=== PATIENT | female | born 1960 | race Caucasian/White ===

== ENCOUNTER 2016-11-26 17:46 | Emergency (ER) | payer OTHER ==
[~2016-11-26] VITALS: Ht 157.5 cm; Wt 86.2 kg
[2016-11-26 17:48] VITALS: BP 144/88
[2016-11-26] MEDS ORDERED: MYRBETRIQ25 M1 PO (18:06)
[2016-11-26] MEDS ORDERED: CARBIDOPA-LEVO1 EAC7 PO (18:06)
[2016-11-26] MEDS ORDERED: MAGNESIUM400 M1 PO (18:07)
[2016-11-26] MEDS ORDERED: OMEPRAZOLE20 M3 PO (18:07)
[2016-11-26] MEDS ORDERED: PAROXETINE HCL20 M1 PO (18:07)
[2016-11-26] MEDS ORDERED: LEVOTHYROXINE50 MCG PO (18:07)
[2016-11-26] MEDS ORDERED: ASPIRIN EC81 M1 PO (18:07)
--- NOTE | 2016-11-26 18:37 | RADIOLOGY REPORT ---
EXAMINATION: XR SHOULDER, LEFT XR ELBOW, LEFT XR WRIST, LEFT CLINICAL INFORMATION: Trauma. Fall. Pain. COMPARISON: None TECHNIQUE: 3 views of the left shoulder. 4 views of the left elbow. 4 views of the left wrist. FINDINGS: Left shoulder: No fracture or dislocation. The humeral head articulates appropriately with the glenoid. Tiny inferior osteophyte noted at the glenoid. The acromioclavicular joint is intact with mild degenerative change. The visualized lung is clear. Left elbow: There is no fracture or dislocation. Alignment is anatomic. Joint spaces are maintained. No joint effusion. Left wrist: No fracture or dislocation. The carpal rows are appropriately aligned. Joint spaces are maintained. The soft tissues are unremarkable. IMPRESSION: No acute fracture or malalignment involving the left shoulder, elbow, or wrist.
--- NOTE | 2016-11-26 18:51 | ED UPPER/LOWER EXTREMITY COMPL ---
History of Present Illness General Chief Complaint: Upper Extremity Injury Stated Complaint: LEFT ARM PAIN, S/P FALL Source: patient Exam Limitations: no limitations Vital Signs & Intake/Output Vital Signs & Intake/Output Vital Signs Date Time Temp Pulse Resp B/P B/P Pulse O2 O2 Flow FiO2 Mean Ox Delivery Rate 11/26 1910 99 Room Air 11/26 1748 98.2 93 18 144/88 100 Room Air Allergies Coded Allergies: Penicillins (Severe, RASH 11/26/16) psyllium (From METAMUCIL) (Severe, ANAPHYLAXIS 11/26/16) Reconcile Medications Aspirin (Ecotrin*) 81 MG TABLET.DR 1 TAB PO DAILY HEART/BLOOD (Reported) Carbidopa/Levodopa (Carbidopa-Levodopa 25-100 Tab) 25 MG-100 MG TABLET 1 TAB PO BID RLS (Reported) Hydrocodone/Acetaminophen (Hydrocodon-Acetaminophen 5-325) 5 MG-325 MG TABLET 1-2 TAB PO Q4-6 PRN PRN pain Levothyroxine Sodium 50 MCG TABLET 1 TAB PO DAILY THYROID (Reported) Magnesium Oxide (Magnesium) (Unknown Strength) CAPSULE (Unknown Dose) PO DAILY PRN SUPPLEMENT (Reported) Mirabegron (Myrbetriq) 25 MG TAB.ER.24H 1 TAB PO DAILY BLADDER (Reported) Omeprazole 20 MG TABLET.DR 1 TAB PO DAILY GI (Reported) Paroxetine HCl 20 MG TABLET 1 TAB PO DAILY PANIC ATTACKS (Reported) Triage Note: 56 Y/O FEMALE C/O L ARM PAIN S/P TRIP AND FALL 1 HOUR AGO WHILE PUMPING GAS. STATES SHE LANDED OUT OUTSTRETCHED ARM. C/O PAIN IN L ELBOW, L WRIST AND L HAND. NO DEFORMITIES NOTED. SLING PROVIDED. PT DECLINES OFFER OF MEDS IN TRIAGE. Triage Nurses Notes Reviewed? yes Onset: Abrupt Duration: hour(s):, constant, continues in ED Timing: recent history Severity: moderate, severe Pain/Injury Location: Left: Arm, Shoulder, Elbow, Wrist. Method of Injury: fall No Modifying Factors: none HPI: 48-year-old female comes into emergency room with complaints of left shoulder left elbow and left wrist pain after slipping and falling at home. Patient reports that she tripped over a gas pump outside and came down her left side. Denies hitting her head. Denies any neck pain. Denies any other extremity injuries. She reports that she has a small abrasion to her knee but does not feel like she broke anything. Denies any other associated symptoms. (MIC SUNG) Past History Travel History Traveled to [place] past 21 day No Medical History Any Pertinent Medical History? see below for history Neurological: NONE EENT: NONE Cardiovascular: NONE Respiratory: NONE Gastrointestinal: NONE Hepatic: NONE Renal: NONE Musculoskeletal: NONE Psychiatric: NONE Endocrine: NONE Blood Disorders: NONE Cancer(s): NONE ASSOCIATE BROKER/Reproductive: NONE Surgical History Surgical History: non-contributory Psychosocial History Who do you live with Spouse Services at Home None What is your primary language Marshallese Tobacco Use: Current Not Daily Family History Hx Contributory? No (MIC SUNG) Review of Systems Review of Systems Constitutional: Reports: no symptoms. EENTM: Reports: no symptoms. Respiratory: Reports: no symptoms. Cardiovascular: Reports: no symptoms. Gastrointestinal/Abdominal: Reports: no symptoms. Genitourinary: Reports: no symptoms. Musculoskeletal: Reports: see HPI. Skin: Reports: no symptoms. Neurological/Psychological: Reports: no symptoms. Hematologic/Endocrine: Reports: no symptoms. Immunological: Reports: no symptoms. All Other Systems: Reviewed and Negative (MIC SUNG) Physical Exam Physical Exam General Appearance: well developed/nourished, mild distress Head: atraumatic Eyes: Bilateral: normal appearance. Ears, Nose, Throat: normal ENT inspection, hearing grossly normal Neck: normal inspection Cardiovascular/Respiratory: no respiratory distress Back: normal inspection Shoulder Left: soft tissue tenderness, limited range of motion Elbow Left: bone tenderness, soft tissue tenderness, limited range of motion Hand Left: limited range of motion Neurologic/Tendon: normal sensation, normal motor functions, normal tendon functions, responds to pain, no evidence tendon injury, no pulse deficit Skin: intact, normal color, warm/dry Lymphatic: no anterior cervical azucena (MIC SUNG) Progress Differential Diagnosis: arterial insufficiency, cellulitis, CHF, compartment syndrome, contusion, dislocation, DVT, fracture, gout, septic arthritis, sprain, tendon injury Plan of Care: Orders Procedure Date/time Status Durable Medical Equipment 11/26 1041 Active Diagnostic Imaging: Viewed by Me: Radiology Read. Discussed w/RAD: Radiology Read. Radiology Impression: XAM TYPE: RAD - XRY-ELBOW 3 OR MORE VIEWS, L; XRY-SHOULDER COMPLETE-LEFT; XRY-WRIST COMPLETE-LEFT EXAMINATION: XR SHOULDER, LEFT XR ELBOW, LEFT XR WRIST, LEFT CLINICAL INFORMATION: Trauma. Fall. Pain. COMPARISON: None TECHNIQUE: 3 views of the left shoulder. 4 views of the left elbow. 4 views of the left wrist. FINDINGS: Left shoulder: No fracture or dislocation. The humeral head articulates appropriately with the glenoid. Tiny inferior osteophyte noted at the glenoid. The acromioclavicular joint is intact with mild degenerative change. The visualized lung is clear. Left elbow: There is no fracture or dislocation. Alignment is anatomic. Joint spaces are maintained. No joint effusion. Left wrist: No fracture or dislocation. The carpal rows are appropriately aligned. Joint spaces are maintained. The soft tissues are unremarkable. IMPRESSION: No acute fracture or malalignment involving the left shoulder, elbow, or wrist. DICTATED BY: KODI FROST,BRIGITTE DATE/TIME DICTATED :11/26/161830 REO ASSET MANAGER:DARRIUS DATE/TIME TRANSCRIBED:11/26/161830 CONFIDENTIAL, DO NOT COPY WITHOUT APPROPRIATE AUTHORIZATION. (JULIÁN ADAIR,MIC) Departure Departure Disposition: HOME OR SELF CARE Condition: Stable Clinical Impression Primary Impression: Sprain of left elbow Referrals: RICCARDO FROST,JEWEL MEDRANO DO (PCP/Family) Additional Instructions: Take Vicodin as needed for pain. Follow-up with primary care doctor. Ice. Rest. Ibuprofen. Follow-up with orthopedic doctor if not better in 7-10 days. Please go over all results of today's visit with your primary care doctor. Contact your primary care doctor to let them know you were here in the emergency room. There may be nonspecific findings which may not be related to your visit today here in the emergency room but may require further evaluation and chronic monitoring by your primary care doctor. If you had a laceration today the chance of foreign body always remains. You should follow-up with your primary care doctor for recheck in 3-5 days for a wound check. If you had an x-ray done there is a chance that a fracture could have been missed on initial read and you should follow-up with your primary care doctor for repeat x-rays if symptoms persist. If your blood pressure was elevated here in the emergency room please have rechecked by her primary care doctor within the next 48 hours by your primary care doctor. If you were prescribed a narcotic here in the emergency room or any type of controlled substances you're not allowed to drive while taking this medication or operate any type of heavy machinery. Narcotics can make you feel lightheaded dizziness nausea and can cause constipation. You may need to bean picker a stool softener. Thank you for choosing [facility] emergency room. Please return to the emergency room immediately if you have any other concerns worsening of symptoms. Departure Forms: Customer Survey General Discharge Information Prescriptions: Current Visit Scripts Hydrocodone/Acetaminophen (Hydrocodon-Acetaminophen 5-325) 1-2 TAB PO Q4-6 PRN PRN pain #10 TAB Comments 11/26/2016 8:14:56 PM Patient clinically looks well. Patient is nontoxic-appearing. Patient is in no apparent distress. Patient resting comfortably in room. No evidence of fracture. Follow-up with orthopedic as needed. (MIC SUNG) PA/TWISTER FRAME TENDER Co-Sign Statement Statement: ED Attending supervision documentation- [] I saw and evaluated the patient. I have also reviewed all the pertinent lab results and diagnostic results. I agree with the findings and the plan of care as documented in the PA's/TWISTER FRAME TENDER's documentation. [X] I have reviewed the ED Record and agree with the PA's/TWISTER FRAME TENDER's documentation. [] Additions or exceptions (if any) to the PAs/TWISTER FRAME TENDER's note and plan are summarized below: [] (BRANDON FROST,LATIA Diego) Procedures Splinting Location: left shoulder Manual Alignment Performed: No Pre-Made Type: shoulder immobilizer Splint Applied By: splint applied by me Pre-Proc Neuro Vasc Exam: normal Post-Proc Neuro Vasc Exam: normal (MIC SUNG)
[2016-11-26] MEDS ORDERED: HYDROCODON-ACE1 EAC2 PO ×2 (19:09→19:25)
== END 2016-11-26 19:44 ==
LOC: ERH 17:46
DX: S53.402A Unspecified sprain of left elbow, initial encounter (principal); M25.532 Pain in left wrist; W18.09XA Striking against other object with subsequent fall, initial encounter; Y93.9 Activity, unspecified; Y92.009 Unspecified place in unspecified non-institutional (private) residence as the place of occurrence of the external cause
CPT/HCPCS: 73030-LT; 73080-LT; 73110-LT